=== PATIENT | female | born 1985 | race African-American/Black ===

== ENCOUNTER 2016-10-11 08:31 | Emergency (ER) | payer OTHER ==
[2016-10-11 08:31] VITALS: BP 114/68; PULSE 78; RESP 17; TEMP 98.7; O2SAT 98
[~2016-10-11 08:31] MED LIST: POLY10O LEFT EYE; Z.0.NO CURRENT MEDS
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
[2016-10-11] MEDS ORDERED: HYDROmorphone HCL PF 1 MG/ML VIAL IVS ONE (09:15)
[2016-10-11] MEDS ORDERED: ONDANSETRON HCL 4 MG/2 ML VIAL IVP ONE (09:15)
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
[2016-10-11] MEDS ORDERED: CYCL5TAB PO (10:35)
[2016-10-11] MEDS ORDERED: HYDR-3533 PO (10:35)
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
[2016-10-11] MEDS ORDERED: ACETAMINOPHEN/HYDROcodone 325 MG/10 MG TAB PO ONE (11:15)
[2016-10-11 11:43] VITALS: BP 116/76
== END 2016-10-11 11:48 | disposition home or self-care (01) ==
LOC: MERGE 08:31 → NEPE 08:31
DX: S09.90XA Unspecified injury of head, initial encounter (principal); S16.1XXA Strain of muscle, fascia and tendon at neck level, initial encounter; S29.012A Strain of muscle and tendon of back wall of thorax, initial encounter; S39.012A Strain of muscle, fascia and tendon of lower back, initial encounter; S80.01XA Contusion of right knee, initial encounter; S80.11XA Contusion of right lower leg, initial encounter; V49.40XA Driver injured in collision with unspecified motor vehicles in traffic accident, initial encounter; Y92.410 Unspecified street and highway as the place of occurrence of the external cause
CPT/HCPCS: 70450; 70486; 72125; 72128; 72131; 73560; 73590